=== PATIENT | male | born 1950 | race Caucasian/White ===

== ENCOUNTER 2022-09-29 06:28 | Day surgery (SDC) | payer BC, MEDICARE ==
[2022-09-29] MEDS ORDERED: Lactated Ringers 1,000 ML IV SCH (07:15)
[2022-09-29] MEDS ORDERED: fentaNYL 100 MCG/2 ML SDV ONE (07:27)
[2022-09-29] MEDS ORDERED: Propofol 200 MG/20 ML SDV ONE (07:27)
== END 2022-09-29 09:19 | disposition home or self-care (01) ==
LOC: JP.SDS 06:28
PROVIDERS: ATTEND Family Medicine
DX: Z12.11 Encounter for screening for malignant neoplasm of colon (principal); I10 Essential (primary) hypertension; E78.5 Hyperlipidemia, unspecified; Z79.899 Other long term (current) drug therapy; Z88.7 Allergy status to serum and vaccine
CPT/HCPCS: G0105; J2704; J3010; J7120